=== PATIENT | female | born 1995 | race African-American/Black ===

== ENCOUNTER 2024-01-12 20:05 | Emergency (ER) | payer MEDICAID ==
[~2024-01-12] VITALS: Ht 185.4 cm; Wt 100.0 kg
[2024-01-12 20:11] VITALS: O2SAT 100
[2024-01-12 22:24] LABS: CLARITY URINE CLOUDY (CLEAR); COLOR URINE YELLOW (YELLOW); GLUCOSE URINE NEGATIVE (NEGATIVE); KETONES URINE NEGATIVE (NEGATIVE); LEUKOCYTE ESTERASE URINE 2+ (NEGATIVE); NITRITE URINE POSITIVE (NEGATIVE); OCCULT BLOOD URINE 3+ (NEGATIVE); PROTEIN URINE 2+ (NEGATIVE); SPECIFIC GRAVITY URINE 1.029 (1.005-1.030)
[2024-01-12 22:45] LABS: BACTERIA URINE 2+; RBC URINE TNTC /hpf (0-2); SQUAMOUS EPITHELIAL CELL URINE 1+ /lpf (RARE/1+)
[2024-01-12] MEDS ORDERED: NITR100C MT (22:54)
[2024-01-12] MEDS ORDERED: PHEN-815 MT (22:54)
[2024-01-12 23:29] VITALS: BP 110/58; PULSE 81; RESP 16; TEMP 36.78072; O2SAT 100
== END 2024-01-13 | disposition home or self-care (01) ==
LOC: ER 20:05
DX: N39.0 Urinary tract infection, site not specified (principal)
CPT/HCPCS: 81003; 81025; 99283